=== PATIENT | female | born 1985 | race Caucasian/White ===

== ENCOUNTER 2024-11-18 07:15 | Emergency (ER) | payer OTHER ==
[~2024-11-18] VITALS: Ht 154.9 cm; Wt 95.3 kg
[2024-11-18 07:25] VITALS: BP 145/93
[2024-11-18 08:18] LABS: *BILIRUBIN,URIN NEGATIVE (NEGATIVE); *BLOOD, URINE NEGATIVE (NEGATIVE); *CLARITY,URINE CLEAR (CLEAR); *COLOR,URINE YELLOW (YELLOW); *KETONES,URINE NEGATIVE (NEGATIVE); *PROTEIN,URINE NEGATIVE (NEGATIVE); *UROBILINOGEN,URINE 0.2 E.U./dl (NORMAL); LEUKOCYTE ESTERASE ,URINE TRACE (NEGATIVE); NITRITE, URINE NEGATIVE (NEGATIVE); UGLUCOSE NEGATIVE (NEGATIVE)
[2024-11-18 08:21] LABS: *URINE HCG, QUAL NEGATIVE (NEGATIVE)
[2024-11-18 08:43] LABS: SQUAMOUS EPITHELIAL CELL,UR FEW /HPF (NONE SEEN)
[2024-11-18] MEDS ORDERED: SULF1TAB48 PO (09:23)
[2024-11-18] MEDS ORDERED: HYDR-3980 PO (09:23)
[2024-11-18 09:32] VITALS: BP 139/89; O2SAT 99
[2024-11-18] MEDS: SULFAMETH/TRIMETH 800/160 MG TABLET PO ONE (09:32)
[2024-11-18] MEDS ORDERED: SULFAMETH/TRIMETH 800/160 MG TABLET ONE (09:34)
== END 2024-11-18 09:35 | disposition home or self-care (01) ==
LOC: ER 07:15
DX: N39.0 Urinary tract infection, site not specified (principal); M54.50 Low back pain, unspecified; E11.9 Type 2 diabetes mellitus without complications; E78.5 Hyperlipidemia, unspecified
CPT/HCPCS: 84703; 87077; 87086; A4606; A4663

== ENCOUNTER 2025-02-14 08:51 | Emergency (ER) | payer MEDICAID, OTHER ==
[~2025-02-14] VITALS: Ht 154.9 cm; Wt 99.8 kg
[~2025-02-14 08:51] MED LIST: CEFD300C3 PO; HYDR-3980 PO; SULF1TAB48 PO
[2025-02-14] MEDS ORDERED: HYDROMORPHONE 1 MG/1 ML DISP.SYRIN IV ONE (09:45)
[2025-02-14] MEDS ORDERED: ONDANSETRON 4 MG/2 ML VIAL IV ONE (09:45)
[2025-02-14 10:23] VITALS: BP 124/79
[2025-02-14 10:47] LABS: PLATELET COUNT (AUTO) 272 K/uL (179-408); RED BLOOD CELL COUNT(AUTO) 4.11 MIL/uL (3.63-4.92); RED CELL DISTRIBUTION WIDTH 13.8 % (12.3-17.7); WHITE BLOOD COUNT (AUTO) 11.2 K/uL (3.8-11.8)
[2025-02-14 11:12] LABS: CREATININE 0.7 mg/dL (0.6-1.3); SODIUM SERUM 142 mmol/L (136-145); UREA NITROGEN, BLOOD 12 mg/dL (7-18)
[2025-02-14 11:23] LABS: ASPARTATE AMINOTRANSFERASE 12 U/L (15-37); TOTAL PROTEIN, SERUM 7.6 g/dL (6.4-8.2)
[2025-02-14] MEDS ORDERED: AZITHROMYCIN 250 MG TABLET ONE (11:46)
[2025-02-14] MEDS ORDERED: PRED50TA PO (11:47)
[2025-02-14] MEDS: AZITHROMYCIN 250 MG TABLET PO ONE (11:47)
[2025-02-14] MEDS ORDERED: AZIT500T4 PO (11:47)
[2025-02-14] MEDS ORDERED: PROM118S5 PO (11:47)
[2025-02-14 11:56] VITALS: BP 136/78; TEMP 98.5; O2SAT 98
== END 2025-02-14 11:58 | disposition home or self-care (01) ==
LOC: ER 08:51
DX: J18.9 Pneumonia, unspecified organism (principal); R07.89 Other chest pain; I11.9 Hypertensive heart disease without heart failure; E11.9 Type 2 diabetes mellitus without complications; E78.5 Hyperlipidemia, unspecified; Z79.52 Long term (current) use of systemic steroids; Z20.822 Contact with and (suspected) exposure to COVID-19
CPT/HCPCS: 99285; 71045; 87426; 87804 ×2; 80076; 80048; 83880; 85025; 85730; 84484; 36415; 93005; J7512; A4606; A4663; Q0144